=== PATIENT | male | born 1950 | race Asian ===

== ENCOUNTER 2020-04-24 04:40 | Day surgery (SDC) | payer OTHER ==
[2020-04-23 16:23] VITALS: BMI 23.3
[2020-04-24] MEDS ORDERED: LIDOCAINE 1%/EPI 1:100000 (50 ML MULTI DOSE VIAL) ONE (12:53)
[2020-04-24] MEDS ORDERED: PROPOFOL 20 ML ONE (13:19)
[2020-04-24] MEDS ORDERED: MIDAZOLAM HCL 2 MG/2 ML SINGLE DOSE VIAL ONE (13:19)
[2020-04-24] MEDS ORDERED: ceFAZolin SODIUM 1 GM VIAL IVPB ONE (13:25)
[2020-04-24] MEDS ORDERED: EPHEDRINE SULFATE/0.9% NACL/PF 50 MG/10 ML SYRINGE NR ONE (13:27)
[2020-04-24] MEDS ORDERED: ceFAZolin SODIUM 1 GM VIAL ONE (13:35)
[2020-04-24] MEDS ORDERED: LIDOCAINE 1%/EPI 1:100000 (50 ML MULTI DOSE VIAL) INF ONE ×2 (13:39)
[2020-04-24] MEDS ORDERED: oxyCODONE HCL 5 MG TABLET PO PRN ×2 (16:07)
[2020-04-24] MEDS ORDERED: ONDANSETRON 4 MG/2 ML VIAL IVPUSH PRN (16:07)
[2020-04-24] MEDS ORDERED: LACTATED RINGERS SOLUTION 1,000 ML IV SCH (16:15)
[2020-04-24 17:45] VITALS: BP 148/83; PULSE 60; TEMP 96.8
== END 2020-04-24 17:40 | disposition home or self-care (01) ==
LOC: JASU-SURG 04:40
PROVIDERS: ATTEND Surgery
PROC: 06LY0ZC Occlusion of Hemorrhoidal Plexus, Open Approach (ICD-10-PCS; principal; 2020-04-24 12:30)
DX: K64.3 Fourth degree hemorrhoids (principal)
CPT/HCPCS: 88304-TC; 94760